=== PATIENT | female | born 1975 | race Two or more races ===

== ENCOUNTER 2021-02-18 21:21 | Emergency (ER) | payer OTHER ==
[~2021-02-18] VITALS: Ht 167.6 cm; Wt 100.0 kg
[2021-02-18 21:49] LABS: CLARITY URINE TURBID (CLEAR); COLOR URINE YELLOW (YELLOW); KETONES URINE TRACE (NEGATIVE); LEUKOCYTE ESTERASE URINE 3+ (NEGATIVE); NITRITE URINE NEGATIVE (NEGATIVE); OCCULT BLOOD URINE 2+ (NEGATIVE); PH URINE 5.5 (4.5-8.0); PROTEIN URINE TRACE (NEGATIVE); UROBILINOGEN URINE 0.2 E.U./dL (0.2-1.0)
[2021-02-18] MEDS ORDERED: ASPIRIN 325MG EC TABLET PO ONE (22:30)
[2021-02-18 22:38] LABS: BASOPHILS % 0.6 % (0.0-2.0); EOSINOPHILS % 1.7 % (0.0-5.0); HEMATOCRIT. 32.3 % (36.0-48.0); HEMOGLOBIN. 10.5 g/dL (12.0-16.0); MEAN CORPUSCULAR HEMOGLOBIN 23.6 pg (28.0-32.0); MEAN PLATELET VOLUME 8.9 fl (7.4-10.4); MONOCYTES % 8.4 % (2.0-8.0); NEUTROPHILS % 71.3 % (40.0-76.0); PLATELET 369 x1000/uL (130-400); RED BLOOD CELL COUNT 4.43 mill/uL (4.2-5.4); RED CELL DISTRIBUTION WIDTH 16.4 % (11.6-14.6)
[2021-02-18 22:44] LABS: CHLORIDE 106 mEq/L (98-107)
[2021-02-19] MEDS ORDERED: NITROFURANTOIN 100MG M/M CAPSULE PO ONE (00:30)
[2021-02-19 04:44] VITALS: BP 139/76
[2021-02-19] MEDS ORDERED: ATORVASTATIN CALCIUM 40MG TABLET PO SCH (21:00)
== END 2021-02-19 05:04 | disposition left against medical advice (07) ==
LOC: ER 21:35
DX: R07.89 Other chest pain (principal); N39.0 Urinary tract infection, site not specified; E78.00 Pure hypercholesterolemia, unspecified; Z86.39 Personal history of other endocrine, nutritional and metabolic disease
CPT/HCPCS: 36415; 71045; 80053; 81003; 81025; 83880; 84484; 85025; 85379; 93005; 99285

== ENCOUNTER 2021-04-22 19:32 | Emergency (ER) | payer OTHER ==
[~2021-04-22] VITALS: Ht 167.6 cm; Wt 100.0 kg
[2021-04-22] MEDS ORDERED: ACETAMINOPHEN 325MG TABLET PO STA (20:08)
[2021-04-22 20:42] LABS: CHLORIDE 106 mEq/L (98-107)
[2021-04-22 20:44] LABS: BASOPHILS % 0.6 % (0.0-2.0); EOSINOPHILS % 1.4 % (0.0-5.0); HEMATOCRIT. 33.3 % (36.0-48.0); LYMPHOCYTES % 14.9 % (20.0-50.0); MEAN CORPUSCULAR HEMOGLOBIN 23.2 pg (28.0-32.0); MEAN CORPUSCULAR VOLUME 70.4 fL (81.0-99.0); MEAN PLATELET VOLUME 8.5 fl (7.4-10.4); MONOCYTES % 8.4 % (2.0-8.0); NEUTROPHILS % 74.7 % (40.0-76.0); PLATELET 378 x1000/uL (130-400); RED BLOOD CELL COUNT 4.73 mill/uL (4.2-5.4); RED CELL DISTRIBUTION WIDTH 16.2 % (11.6-14.6)
[2021-04-22 22:36] VITALS: BP 144/85
== END 2021-04-22 22:37 | disposition home or self-care (01) ==
LOC: ER 19:32
DX: R07.89 Other chest pain (principal); R03.0 Elevated blood-pressure reading, without diagnosis of hypertension; E05.90 Thyrotoxicosis, unspecified without thyrotoxic crisis or storm; E78.00 Pure hypercholesterolemia, unspecified
CPT/HCPCS: 36415; 71045; 80053; 83880; 84484; 85025; 85379; 93005; 99285

== ENCOUNTER 2024-03-21 20:24 | Emergency (ER) | payer SELFPAY ==
[~2024-03-21] VITALS: Ht 167.6 cm; Wt 100.0 kg
[2024-03-21 20:38] VITALS: O2SAT 100
[2024-03-21] MEDS ORDERED: KETOROLAC 30MG/ML VIAL IV STA (23:28)
[2024-03-21] MEDS ORDERED: DIPHENHYDRAMINE 50MG/ML VIAL IV ONE (23:30)
[2024-03-21] MEDS ORDERED: METOCLOPRAMIDE HCL 10MG/2ML VIAL IV ONE (23:30)
[2024-03-21] MEDS: SODIUM CHLORIDE 0.9% 1,000 ML IV ONE (23:30)
[2024-03-22] MEDS: METOCLOPRAMIDE HCL 10MG/2ML VIAL IV NR (01:38)
[2024-03-22] MEDS: DIPHENHYDRAMINE 50MG/ML VIAL IV NR (01:38)
[2024-03-22] MEDS: KETOROLAC 30MG/ML VIAL IV NR (01:38)
[2024-03-22] MEDS ORDERED: IBUP-2030 MT (02:05)
[2024-03-22] MEDS ORDERED: ACET325T52 MT (02:05)
[2024-03-22 02:53] VITALS: BP 164/70; PULSE 82; RESP 16; TEMP 98.6
== END 2024-03-22 02:56 | disposition home or self-care (01) ==
LOC: ER 20:24
DX: R51.9 Headache, unspecified (principal); R11.0 Nausea; D64.9 Anemia, unspecified; E78.00 Pure hypercholesterolemia, unspecified
CPT/HCPCS: 99285; 96361; 96374; 70450; 96375; J7030; J1200; J1885; J2765